=== PATIENT | female | born 1965 ===

== ENCOUNTER 2022-01-18 21:33 | Emergency (ER) | payer OTHER ==
[~2022-01-18] VITALS: Ht 170.2 cm; Wt 87.1 kg
[2022-01-18] MEDS ORDERED: TOPROL XL25 M1 (22:08)
[2022-01-19] MEDS ORDERED: ZITHROMAX500 MG PO (04:28)
[2022-01-19] MEDS ORDERED: MUPIROCIN1 G1 TOP (04:28)
[2022-01-19] MEDS ORDERED: KETO10TA2 PO (04:28)
== END 2022-01-19 04:38 ==
LOC: ER 21:33
DX: S00.93XA Contusion of unspecified part of head, initial encounter (principal); S50.11XA Contusion of right forearm, initial encounter; S60.211A Contusion of right wrist, initial encounter; S40.011A Contusion of right shoulder, initial encounter; S14.109A Unspecified injury at unspecified level of cervical spinal cord, initial encounter; W05.2XXA Fall from non-moving motorized mobility scooter, initial encounter; Y93.89 Activity, other specified; Y92.89 Other specified places as the place of occurrence of the external cause; Y99.9 Unspecified external cause status; Z88.0 Allergy status to penicillin; I10 Essential (primary) hypertension